=== PATIENT | male | born 1955 | race Caucasian/White ===

== ENCOUNTER 2022-05-28 03:16 | Emergency (ER) | payer OTHER, BC ==
[~2022-05-28] VITALS: Ht 182.9 cm; Wt 77.1 kg
[~2022-05-28 03:16] MED LIST: FAMOTIDINE10 MG PO; HYDROCODON-ACE1 EA10 PO; LOSARTAN POTAS100 MG PO; METOPROLOL SUC200 MG PO; OXYCODONE HCL5 MG PO
[2022-05-28] MEDS ORDERED: VENTOLIN HFA18 GM INH (03:36)
[2022-05-28] MEDS ORDERED: ALBUTEROL2.5 MG/3 M INH (04:11)
[2022-05-28] MEDS ORDERED: LASIX20 MG PO (04:11)
[2022-05-28] MEDS ORDERED: IPRAT-ALBUT 0.5-3 ML INH (04:11)
== END 2022-05-28 06:48 | disposition home or self-care (01) ==
LOC: ED 03:16
DX: I11.0 Hypertensive heart disease with heart failure (principal); I50.9 Heart failure, unspecified; J44.9 Chronic obstructive pulmonary disease, unspecified; Z87.891 Personal history of nicotine dependence; Z88.5 Allergy status to narcotic agent; Z79.899 Other long term (current) drug therapy
CPT/HCPCS: 36415; 71045; 80053; 85025; 94640; 96374; 96375; 99285-25; J1940; J2930

== ENCOUNTER 2022-06-30 20:58 | Emergency (ER) | payer OTHER, BC ==
[~2022-06-30] VITALS: Ht 182.9 cm; Wt 74.9 kg
[~2022-06-30 20:58] MED LIST changes: +ALBUTEROL2.5 MG/3 M INH; +IPRAT-ALBUT 0.5-3 ML INH; +LASIX20 MG PO; +VENTOLIN HFA18 GM INH
[2022-06-30] MEDS ORDERED: FUROSEMIDE20 MG PO (21:14)
[2022-06-30] MEDS ORDERED: LASIX20 MG PO (22:47)
--- NOTE | 2022-07-01 07:14 | EKG ---
[facility] [address] [facility] [place] [address] Signed Sinus tachycardia Possible Left atrial enlargement Minimal voltage criteria for LVH, may be normal variant ( [place] product ) Nonspecific T wave abnormality Abnormal ECG When compared with ECG of 30-APR-2016 15:18, Significant changes have occurred Confirmed by DAT MORRISON MD ([id number]) on 07/01/2022 7:14:28 AM Electronically Signed By: DAT MORRISON MD 07/01/22 0714 PATIENT NAME: SANTOS VALLEJO Electrocardiogram DATE OF : 55 PHYSICIAN: DAT MORRISON MD REPORT #: [id number] REPORT IS CONFIDENTIAL AND NOT TO BE RELEASED WITHOUT AUTHORIZATION
== END 2022-06-30 23:13 | disposition home or self-care (01) ==
LOC: ED 20:58
DX: I11.0 Hypertensive heart disease with heart failure (principal); I50.9 Heart failure, unspecified; J44.9 Chronic obstructive pulmonary disease, unspecified; R79.89 Other specified abnormal findings of blood chemistry; Z87.891 Personal history of nicotine dependence; Z88.5 Allergy status to narcotic agent; Z79.899 Other long term (current) drug therapy
CPT/HCPCS: 36415; 71045; 80053; 83880; 84484; 85025; 85379; 93005; 93010; 94644; 96374; 99285-25; J1940

== ENCOUNTER 2022-07-03 01:34 | Emergency (ER) | payer OTHER, BC ==
[~2022-07-03] VITALS: Ht 180.3 cm; Wt 71.2 kg
[~2022-07-03 01:34] MED LIST changes: +FUROSEMIDE20 MG PO
--- OUTSIDE RECORDS SUMMARY | 2022-07-03 01:39 | XMS ---
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 Crystal has no Care Guidelines for this patient. Ann VISIT COUNT (12 MO.) 3 [facility] [place] [facility] TOTAL 3 NOTE: Visits indicate total known visits. ED/C VISIT TRACKING (12 MO.) 07/03/2022 01:35 [facility] [place] TYPE: Emergency COMPLAINT: - SOB 06/30/2022 20:59 [facility] [place] TYPE: Emergency COMPLAINT: - SOB 05/28/2022 03:16 [facility] [place] TYPE: Emergency COMPLAINT: - SOB DIAGNOSES: - Shortness of breath - Other care home (current) drug therapy - Allergy status to narcotic agent - Chronic obstructive pulmonary disease, unspecified - Hypertensive heart disease with heart failure - Heart failure, unspecified - Personal history of nicotine dependence INPATIENT VISIT TRACKING (12 MO.) No inpatient visits to display in this time frame [email or web address]
[2022-07-03] MEDS ORDERED: FLOVENT DISKU100 MCG INH (01:49)
[2022-07-03] MEDS ORDERED: AZITHROMYCIN250 MG PO (01:49)
[2022-07-03] MEDS ORDERED: ISOSORBIDE DINI10 MG PO (05:06)
--- NOTE | 2022-07-03 07:30 | EKG ---
[facility] [address] [facility] [place] [address] Signed Normal sinus rhythm Possible Left atrial enlargement Minimal voltage criteria for LVH, may be normal variant ( [place]rypt[place] product ) Nonspecific T wave abnormality Prolonged QT Abnormal ECG When compared with ECG of 03-JUL-2022 02:51, (Unconfirmed) No significant change was found Confirmed by DAT MORRISON MD ([id number]) on 07/03/2022 7:30:28 AM Electronically Signed By: DAT MORRISON MD 07/03/22 0730 PATIENT NAME: SANTOS VALLEJO Electrocardiogram DATE OF : 55 PHYSICIAN: DAT MORRISON MD REPORT #: [id number] REPORT IS CONFIDENTIAL AND NOT TO BE RELEASED WITHOUT AUTHORIZATION
--- NOTE | 2022-07-03 07:30 | EKG ---
[facility] [address] [facility] [place] [address] Signed Sinus tachycardia Possible Left atrial enlargement Minimal voltage criteria for LVH, may be normal variant ( [place] product ) Nonspecific T wave abnormality Abnormal ECG When compared with ECG of 30-JUN-2022 21:24, Nonspecific T wave abnormality no longer evident in Inferior leads Confirmed by DAT MORRISON MD ([id number]) on 07/03/2022 7:29:53 AM Electronically Signed By: DAT MORRISON MD 07/03/22 0730 PATIENT NAME: SANTOS VALLEJO Electrocardiogram DATE OF : 55 PHYSICIAN: DAT MORRISON MD REPORT #: [id number] REPORT IS CONFIDENTIAL AND NOT TO BE RELEASED WITHOUT AUTHORIZATION
--- NOTE | 2022-07-03 07:30 | EKG ---
[facility] [address] [facility] [place] [address] Signed Normal sinus rhythm Possible Left atrial enlargement Minimal voltage criteria for LVH, may be normal variant ( [place] product ) Nonspecific T wave abnormality Prolonged QT Abnormal ECG When compared with ECG of 03-JUL-2022 01:55, (Unconfirmed) No significant change was found Confirmed by DAT MORRISON MD ([id number]) on 07/03/2022 7:30:05 AM Electronically Signed By: DAT MORRISON MD 07/03/22 0730 PATIENT NAME: SANTOS VALLEJO Electrocardiogram DATE OF : 55 PHYSICIAN: DAT MORRISON MD REPORT #: [id number] REPORT IS CONFIDENTIAL AND NOT TO BE RELEASED WITHOUT AUTHORIZATION
== END 2022-07-03 05:37 | disposition home or self-care (01) ==
LOC: ED 01:34
DX: I11.0 Hypertensive heart disease with heart failure (principal); I50.9 Heart failure, unspecified; J44.9 Chronic obstructive pulmonary disease, unspecified; Z87.891 Personal history of nicotine dependence; Z88.5 Allergy status to narcotic agent; Z79.899 Other long term (current) drug therapy; Z20.822 Contact with and (suspected) exposure to COVID-19
CPT/HCPCS: 71045; 80053; 80061; 82306; 83880; 84484; 85025; 85379; 85610; 87502; 93005; 93010; 96374; 99285-25; A9270; C9803; G0103; J1940; U0003

== ENCOUNTER 2025-02-10 13:01 | Emergency (ER) | payer BC ==
[~2025-02-10] VITALS: Ht 180.3 cm; Wt 72.3 kg
[~2025-02-10 13:01] MED LIST changes: +AZITHROMYCIN250 MG PO; +FLOVENT DISKU100 MCG INH; +ISOSORBIDE DINI10 MG PO
[2025-02-10 18:36] VITALS: BP 167/92
== END 2025-02-10 18:22 | disposition left against medical advice (07) ==
LOC: ED 13:01
DX: Z53.21 Procedure and treatment not carried out due to patient leaving prior to being seen by health care provider (principal)